=== PATIENT | male | born 1990 | race Caucasian/White ===

== ENCOUNTER 2022-01-09 09:27 | Outpatient (CLI) | payer OTHER | END 2022-01-09 09:28 | disposition EMS.NT | LOC: EMS 09:27 | DX: T20.00XA Burn of unspecified degree of head, face, and neck, unspecified site, initial encounter (principal); T22.00XA Burn of unspecified degree of shoulder and upper limb, except wrist and hand, unspecified site, initial encounter; X02.0XXA Exposure to flames in controlled fire in building or structure, initial encounter; Y93.G3 Activity, cooking and baking; Y92.89 Other specified places as the place of occurrence of the external cause; Y99.0 Civilian activity done for income or pay ==

== ENCOUNTER 2022-01-09 10:21 | Emergency (ER) | payer MEDICAID, OTHER ==
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
[2022-01-09 11:46] VITALS: BP 144/93
== END 2022-01-09 11:59 | disposition home or self-care (01) ==
LOC: ED 10:21
DX: T20.10XA Burn of first degree of head, face, and neck, unspecified site, initial encounter (principal); T22.112A Burn of first degree of left forearm, initial encounter; T22.111A Burn of first degree of right forearm, initial encounter; T79.9XXA Unspecified early complication of trauma, initial encounter; X02.0XXA Exposure to flames in controlled fire in building or structure, initial encounter; Y93.G2 Activity, grilling and smoking food; Y99.0 Civilian activity done for income or pay; F17.200 Nicotine dependence, unspecified, uncomplicated
CPT/HCPCS: 99281; 99282